=== PATIENT | male | born 1970 | race Two or more races ===

== ENCOUNTER 2018-03-29 03:55 | Emergency (ER) | payer OTHER ==
[~2018-03-29] VITALS: Ht 172.7 cm; Wt 170.0 kg
[~2018-03-29 03:55] MED LIST: AMLO10TA55 PO; BENA20 PO; CREON12 PO; DOCU100C19 PO; FAMO20 PO; INSLAN SQ; INSNOV SQ; LACT30L PO; METF10004 PO; METH10 PO; METO5TAB95 PO; OMEP20 PO; ONDA4 PO; PARO20TA24 PO; PRAV40TA4 PO; PREG25 PO; PROM25 PO; SENN-161 PO; SUCR1TAB PO; TAMS0.4C32 PO; TRAZ-144 PO
[2018-03-29 03:59] VITALS: BP 112/72
[2018-03-29 04:08] LABS: GLUCOSE,POINT OF CARE 203 MG/DL (70-110)
== END 2018-03-29 04:45 | disposition left against medical advice (07) ==
LOC: EMS 03:56
DX: H92.09 Otalgia, unspecified ear (principal); Z53.21 Procedure and treatment not carried out due to patient leaving prior to being seen by health care provider

== ENCOUNTER 2018-11-17 23:56 | Inpatient (IN) | payer OTHER ==
[~2018-11-17] VITALS: Ht 172.7 cm; Wt 78.7 kg
[~2018-11-17 23:56] MED LIST changes: +DOCU-281 PO; -DOCU100C19 PO; +METF-446 PO; -METF10004 PO; -TRAZ-144 PO; +TRAZ-219 PO
[2018-11-18] MEDS ORDERED: HYDR4 PO (00:10)
[2018-11-18 00:31] LABS: GLUCOSE,POINT OF CARE 364 MG/DL (70-110)
[2018-11-18] MEDS ORDERED: SODIUM CHLORIDE 0.9% 1,000 ML IV ONE ×2 (00:45→02:45)
[2018-11-18 01:21] LABS: APPEARANCE,URINE CLEAR (CLEAR); BILIRUBIN,URINE NEGATIVE (NEGATIVE); GLUCOSE, URINE (UA) >=1000 mg/dL (NEGATIVE); KETONES,URINE 40 mg/dL (NEGATIVE); LEUKOCYTE ESTERASE ,URINE NEGATIVE (NEGATIVE); NITRATE,URINE NEGATIVE (NEGATIVE); OCCULT BLOOD,URINE TRACE (NEGATIVE); PROTEIN,URINE POS 1+ (NEGATIVE); UROBILINOGEN,URINE 0.2 mg/dL (<=1.0)
[2018-11-18 01:26] LABS: BASOPHILS % (AUTO) 0.2 % (0.0-2.0); EOSINOPHILS % (AUTO) 0.1 % (1.0-6.0); HEMATOCRIT 43.5 % (41-53); HEMOGLOBIN 14.9 g/dL (13.5-17.5); LYMPHOCYTES # (AUTO) 0.7 K/uL (1.0-4.8); MEAN CORPUSCULAR HEMOGLOBIN 34.3 pg (26.0-34.0); MEAN CORPUSCULAR HGB CONC 34.3 G/dL (31.0-37.0); MEAN CORPUSCULAR VOLUME 100 fL (80-100); MONOCYTES # (AUTO) 0.7 K/uL (0.1-1.0); NEUTROPHILS % (AUTO) 84.7 % (40.0-70.0); PLATELET COUNT (AUTO) 105 K/uL (150-450); RED BLOOD CELL COUNT(AUTO) 4.35 MIL/uL (4.50-5.90); RED CELL DISTRIBUTION WIDTH 15.1 % (11.5-14.5)
[2018-11-18 01:35] LABS: BACTERIA,URINE None Seen /HPF (None Seen)
[2018-11-18 01:36] LABS: SQUAMOUS EPITHELIAL CELL,UR Rare /LPF (None Seen)
[2018-11-18 01:36] LABS: ALBUMIN 3.6 g/dL (3.4-5.0); BILIRUBIN,TOTAL 1.1 mg/dL (0.1-1.0); CREATININE 1.85 mg/dL (0.60-1.30); POTASSIUM 4.3 mmol/L (3.5-5.1)
[2018-11-18] MEDS ORDERED: KETOROLAC TROMETHAMINE 30 MG/ML VIAL IVP ONE (02:15)
[2018-11-18] MEDS ORDERED: ONDANSETRON HCL 4 MG/2 ML VIAL IVP ONE (02:15)
[2018-11-18] MEDS ORDERED: INSULIN REGULAR, HUMAN 100 UNITS/ML IVP ONE (02:15)
[2018-11-18 02:27] LABS: GLUCOSE,POINT OF CARE 367 MG/DL (70-110)
[2018-11-18] MEDS ORDERED: 0.9% SODIUM CHLORIDE 10 ML SYRINGE IVP PRN (02:45)
[2018-11-18] MEDS ORDERED: ONDANSETRON HCL 4 MG/2 ML VIAL IVP PRN (02:45)
[2018-11-18] MEDS ORDERED: ACETAMINOPHEN 325 MG TABLET PO PRN (02:45)
[2018-11-18 04:45] VITALS: BP 119/90
[2018-11-18 08:19] LABS: GLUCOMETER DEV NAME(LOC) 5S.2; GLUCOSE,POINT OF CARE 264 MG/DL (70-110)
[2018-11-18 08:19] LABS: GLUCOMETER DEV NAME(LOC) 5S.1; GLUCOSE,POINT OF CARE 267 MG/DL (70-110)
== END 2018-11-18 08:50 | disposition left against medical advice (07) | DRG 282 ==
LOC: EMS 23:56 → 5S 11-18 02:30
PROVIDERS: ADMIT Internal Medicine; ATTEND Internal Medicine
DX: K85.90 Acute pancreatitis without necrosis or infection, unspecified (principal); E11.22 Type 2 diabetes mellitus with diabetic chronic kidney disease; E11.8 Type 2 diabetes mellitus with unspecified complications; E11.65 Type 2 diabetes mellitus with hyperglycemia; E87.1 Hypo-osmolality and hyponatremia; E78.00 Pure hypercholesterolemia, unspecified; N18.9 Chronic kidney disease, unspecified; E78.5 Hyperlipidemia, unspecified; F17.210 Nicotine dependence, cigarettes, uncomplicated; G89.29 Other chronic pain; I12.9 Hypertensive chronic kidney disease with stage 1 through stage 4 chronic kidney disease, or unspecified chronic kidney disease; K74.60 Unspecified cirrhosis of liver; K86.1 Other chronic pancreatitis; Z88.5 Allergy status to narcotic agent; Z91.19 Patient's noncompliance with other medical treatment and regimen; Z79.82 Long term (current) use of aspirin; Z79.4 Long term (current) use of insulin; Z79.899 Other long term (current) drug therapy
CPT/HCPCS: 74176; 96374; 96375; 99406; G0378; J1815; J1885; J2405; J7030